=== PATIENT | female | born 1990 | race Caucasian/White ===

== ENCOUNTER 2017-03-15 09:10 | Emergency (ER) | payer OTHER ==
[2017-03-15 10:26] VITALS: BP 110/64
--- NOTE | 2017-03-15 10:51 | UC ---
Throat Pain/Nasal Eran HPI - HPI Summary HPI Summary: Pt presents with sore throat, headache, and feeling tired since last night. She tells me that she has a history of viral tonsillitis, but wants to be sure that this is all it is. She has not taken anything for this. Denies fever, chills, SOB, chest pain, abdominal pain, n/v/d/c. She is able to eat/drink/breathe without difficulties. - History of Current Complaint Chief Complaint: UCGeneralIllness Stated Complaint: SORE THROAT Time Seen by Provider: 03/15/17 10:50 Hx Obtained From: Patient Hx Last Menstrual Period: 03/07/16 Onset/Duration: Sudden Onset Severity: Moderate Pain Intensity: 8 Pain Scale Used: 0-10 Numeric - Allergies/Home Medications Allergies/Adverse Reactions: Allergies Allergy/AdvReac Type Severity Reaction Status Date / Time Bee Venom Allergy Unknown Verified 03/15/17 10:25 Reaction Details PMH/Surg Hx/FS Hx/Imm Hx - Surgical History Surgical History: None - Social History Occupation: Employed Full-time Lives: Alone Alcohol Use: Occasionally Substance Use Type: None Smoking Status (MU): Never Smoked Tobacco Have You Smoked in the Last Year: No - Immunization History Most Recent Influenza Vaccination: 01/11/15 Most Recent Tetanus Shot: 03/13/15 Most Recent Pneumonia Vaccination: none Review of Systems Constitutional: Fatigue, Other - Body Aches Skin: Negative Eyes: Negative ENT: Sore Throat Respiratory: Negative Cardiovascular: Negative Gastrointestinal: Negative All Other Systems Reviewed And Are Negative: Yes Physical Exam Triage Information Reviewed: Yes Appearance: Well-Appearing, No Pain Distress, Well-Nourished Vital Signs: Initial Vital Signs Temp 99.2 F 03/15/17 10:22 Pulse 87 03/15/17 10:22 Resp 18 03/15/17 10:22 BP 110/64 03/15/17 10:22 Pulse Ox 100 03/15/17 10:22 Vital Signs Reviewed: Yes Eyes: Positive: Conjunctiva Clear. Negative: Conjunctiva Inflamed, Discharge ENT: Positive: Hearing grossly normal, Pharyngeal erythema, TMs normal, Tonsillar swelling - 2+, Uvula midline. Negative: Nasal congestion, Nasal drainage, TM bulging, TM dull, TM red, Tonsillar exudate, Muffled voice, Hoarse voice, Sinus tenderness Neck: Positive: Supple, No Lymphadenopathy, Other: - TTP left submandibular Respiratory: Positive: Chest non-tender, Normal breath sounds Cardiovascular: Positive: RRR, No Murmur, Pulses Normal Neurological: Positive: Alert Psychological: Positive: Age Appropriate Behavior Skin: Negative: rashes Throat Pain/Nasal Course/Dx - Course Course Of Treatment: POC strep positive - Amoxicillin - Differential Dx/Diagnosis Provider Diagnoses: Strep Pharyngitis Discharge - Discharge Plan Condition: Stable Disposition: HOME Prescriptions: Amoxicillin PO (*) [Amoxicillin 500 MG CAP*] 500 mg PO Q12H #20 cap Patient Education Materials: Strep Throat (DC) Forms: *Work Release Referrals: Jeri Cabrera [Primary Care Provider] - Additional Instructions: If you develop a fever, shortness of breath, chest pain, new or worsening symptoms - please call your PCP or go to the ED.
== END 2017-03-15 11:00 | disposition home or self-care (01) ==
LOC: UCEAST 09:10
DX: J02.0 Streptococcal pharyngitis (principal)
CPT/HCPCS: 87651; 99212; G0463

== ENCOUNTER 2018-12-15 07:29 | Emergency (ER) | payer OTHER ==
[2018-12-15 07:42] VITALS: BP 121/81
--- NOTE | 2018-12-15 08:07 | UC ---
UC General HPI - HPI Summary HPI Summary: Patient is a 28-year-old female who presents to the urgent care with a chief complaint of being fatigued, weakness, is sleeping most of the day , feeling very tired all the time. She is been having this symptoms for the last couple weeks. She denies any headache, denies any chest pain, denies any shortness of breath or palpitations. She denies any abdominal pain nausea vomiting or diarrhea. She denies any UTI symptoms. She requested to blood work today. - History of Current Complaint Chief Complaint: UCGeneralIllness Stated Complaint: FATIGUE Time Seen by Provider: 12/15/18 07:55 Hx Last Menstrual Period: 11/23/18 Onset/Duration: Gradual Onset Timing: Constant Onset Severity: Mild Current Severity: Moderate Pain Intensity: 0 - Allergy/Home Medications Allergies/Adverse Reactions: Allergies Allergy/AdvReac Type Severity Reaction Status Date / Time bee venom protein (honey bee) Allergy unk Verified 12/15/18 07:36 Home Medications: Home Medications Multivit/Iron/Folic Acid/Hb179 [Womens Multivit Hi Potency Tab] 1 tab PO DAILY 12/15/18 [History Confirmed 12/15/18] PMH/Surg Hx/FS Hx/Imm Hx Previously Healthy: Yes - Surgical History Surgical History: None - Family History Known Family History: Positive: Non-Contributory - Social History Alcohol Use: Occasionally Substance Use Type: Marijuana Smoking Status (MU): Never Smoked Tobacco Have You Smoked in the Last Year: No - Immunization History Most Recent Influenza Vaccination: 01/11/15 Most Recent Tetanus Shot: 03/13/15 Most Recent Pneumonia Vaccination: none Review of Systems All Other Systems Reviewed And Are Negative: Yes Constitutional: Positive: Fatigue Skin: Positive: Negative Eyes: Positive: Negative ENT: Positive: Negative Respiratory: Positive: Negative Cardiovascular: Positive: Negative Gastrointestinal: Positive: Negative Genitourinary: Positive: Negative Motor: Positive: Negative Neurovascular: Positive: Negative Musculoskeletal: Positive: Negative Neurological: Positive: Negative Psychological: Positive: Negative Is Patient Immunocompromised?: No Physical Exam - Summary Physical Exam Summary: VITAL SIGNS: Reviewed. GENERAL: Patient is a well developed and nourished female who is lying comfortably in the stretcher. Patient is not in any acute respiratory distress. HEAD AND FACE: No signs of trauma. No ecchymosis, hematomas or skull depressions. No sinus tenderness. EYES: PERRLA, EOMI x 2, No injected conjunctiva, no nystagmus. EARS: Hearing grossly intact. Ear canals and tympanic membranes are within normal limits. MOUTH: Oropharynx within normal limits. NECK: Supple, trachea is midline, no adenopathy, no JVD, no carotid bruit, no c- spine tenderness, neck with full ROM. CHEST: Symmetric, no tenderness at palpation LUNGS: Clear to auscultation bilaterally. No wheezing or crackles. CVS: Regular rate and rhythm, S1 and S2 present, no murmurs or gallops appreciated. ABDOMEN: Soft, non-tender. No signs of distention. No rebound no guarding, and no masses palpated. Bowel sounds are normal. EXTREMITIES: FROM in all major joints, no edema, no cyanosis or clubbing. NEURO: Alert and oriented x 3. No acute neurological deficits. Speech is normal and follows commands. SKIN: Dry and warm Triage Information Reviewed: Yes Appearance: Well-Appearing Vital Signs: Initial Vital Signs Temp 98.3 F 12/15/18 07:38 Pulse 83 12/15/18 07:38 Resp 18 12/15/18 07:38 BP 121/81 12/15/18 07:38 Pulse Ox 100 12/15/18 07:38 Vital Signs Reviewed: Yes Course/Dx - Course Course Of Treatment: Patient was generalized complaints. Physical exam is within normal limits. Blood work would be sent to the lab. Urinalysis negative, test is negative. This point the patient will be discharged home requested to follow with the [facility]. - Diagnoses Provider Diagnosis: Fatigue, Weakness Discharge ED - Sign-Out/Discharge Documenting (check all that apply): Patient Departure All imaging exams completed and their final reports reviewed: No Studies - Discharge Plan Condition: Stable Disposition: HOME Patient Education Materials: Fatigue (ED), Weakness (ED) Referrals: No Primary Care Phys,NOPCP [Primary Care Provider] - [facility]FERR[facility] [Outside] Additional Instructions: Will follow-up with [facility]. Return to the urgent care or go to the emergency room and able to symptoms worsen or if she develops any other symptom. - Billing Disposition and Condition Condition: STABLE Disposition: Home
[2018-12-15 12:49] LABS: ABS Eosinophils 0.1 10^3/ul (0-0.6); ABS Lymphocytes 1.8 10^3/ul (1.0-4.8); ABS Monocytes 0.3 10^3/ul (0-0.8); ABS Neutrophils 2.1 10^3/ul (1.5-7.7); Eosinophil % 2.7 %; Hematocrit 39 % (35-47); Hemoglobin 13.5 g/dL (12.0-16.0); Lymphocyte % 41.9 %; Mean Corpuscular HGB Conc 35 g/dL (31-36); Mean Corpuscular Hemoglobin 31 pg (27-31); Mean Corpuscular Volume 89 fL (80-97); Mean Platelet Volume 8.2 fL (7.4-10.4); Platelet Count 291 10^3/uL (150-450); Red Blood Count 4.41 10^6 /uL (3.70-4.87); Red Cell Distribution Width 13 % (10-15); White Blood Count 4.4 10^3/uL (3.5-10.8)
[2018-12-15 13:14] LABS: TSH (Thyroid Stimulating Horm) 1.49 mcIU/mL (0.34-5.60)
[2018-12-15 15:43] LABS: Albumin 4.8 g/dL (3.2-5.2); Calcium 9.5 mg/dL (8.6-10.3); Potassium 3.9 mmol/L (3.5-5.0); Total Bilirubin 0.5 mg/dL (0.2-1.0)
[2018-12-15 15:49] LABS: Albumin/Globulin Ratio 1.9 (1-3); BUN/Creatinine Ratio 16.7 (8-20); EGFR African American 115.1 (>60); EGFR Non-African American 95.1 (>60); Globulin 2.5 g/dL (2-4); Total Protein 7.3 g/dL (6.4-8.9)
--- NOTE | 2018-12-16 08:00 | UC ---
- Progress Note Progress Note: PLEASE CALL PATIENT ADVISED THAT ALL LABS GROSSLY UNREMARKABLE. NOTHING TO EXPLAIN PATIENT'S FATIGUE. FOLLOW-UP PCP. Course/Dx - Diagnoses Provider Diagnoses: Fatigue, Weakness Discharge ED - Sign-Out/Discharge Documenting (check all that apply): Post-Discharge Follow Up All imaging exams completed and their final reports reviewed: No Studies - Discharge Plan Condition: Stable Disposition: HOME Patient Education Materials: Weakness (ED), Fatigue (ED) Referrals: [facility] [place] [facility]IAN REFERRAL [Outside] No Primary Care Phys,NOPCP [Primary Care Provider] - Additional Instructions: Will follow[facility]. Return to the urgent care or go to the emergency room and able to symptoms worsen or if she develops any other symptom. - Billing Disposition and Condition Condition: STABLE Disposition: Home
== END 2018-12-15 08:17 | disposition home or self-care (01) ==
LOC: UCEAST 07:29
DX: R53.83 Other fatigue (principal); R53.1 Weakness; Z91.030 Bee allergy status
CPT/HCPCS: 36415; 80053; 81003; 84443; 84702; 85025; 99211; G0463

== ENCOUNTER 2021-03-19 08:11 | Inpatient (IN) ==
[2021-03-19] MEDS ORDERED: Buffered Lidocaine 1% SYRIN 1 ml INTRADERM ONE (08:28)
[2021-03-19] MEDS ORDERED: Lactated Ringers 1000 ml BAG 1,000 ML IV ONE ×2 (08:28→19:37)
[2021-03-19] MEDS ORDERED: Lactated Ringers 1000 ml BAG 1,000 ML IV SCH ×2 (09:00→20:00)
[2021-03-19 12:55] LABS: Urine Benzodiazepine Screen None Detected (None Detect); Urine Cannabinoids Screen Presumptive Positive (None Detect); Urine Opiates Screen None Detected (None Detect)
[2021-03-19] MEDS ORDERED: Nalbuphine 10 MG/ML 1 ML VIAL IV PRN (15:13)
[2021-03-19] MEDS ORDERED: Promethazine INJ(RESTRICTED) 25 MG/ML 1 ml VIAL IV ONE (15:15)
[2021-03-19 17:53] LABS: ABS Eosinophils 0.1 10^3/ul (0-0.6); ABS Lymphocytes 1.5 10^3/ul (1.0-4.8); ABS Monocytes 0.5 10^3/ul (0-0.8); Eosinophil % 0.9 %; Hematocrit 33 % (35-47); Lymphocyte % 21.3 %; Mean Corpuscular HGB Conc 34 g/dL (31-36); Mean Corpuscular Hemoglobin 27 pg (27-31); Mean Corpuscular Volume 81 fL (80-97); Mean Platelet Volume 9.8 fL (7.4-10.4); Nucleated Red Blood Cells % 0.1; Platelet Count 192 10^3/uL (150-450); Red Blood Count 4.02 10^6 /uL (3.70-4.87); Red Cell Distribution Width 15 % (10-15); White Blood Count 7.1 10^3/uL (3.5-10.8)
[2021-03-19] MEDS ORDERED: Oxytocin in LR 20 UNITS/1,000 ML BAG IVPB SCH (18:00)
[2021-03-19] MEDS ORDERED: OBEPIDURAL 250 ML EPIDURAL ONE (18:52)
[2021-03-19] MEDS ORDERED: Phenylephrine 40 mcg/mL 10mL (400mcg) SYRINGE IV PUSH PRN ×2 (19:37)
[2021-03-19] MEDS ORDERED: Sodium Citrate/Citric Acid LIQ 15 ML UDC PO PRN (19:37)
[2021-03-19] MEDS ORDERED: Lidocaine 1% VIAL 10 MG/ML VIAL ONE (19:47)
[2021-03-19] MEDS ORDERED: OBEPIDURAL 250 ML EPIDURAL SCH (20:00)
[2021-03-20] MEDS ORDERED: Oxytocin 10 UNITS/ML 1 ML VIAL IM ONE (00:34)
[2021-03-20] MEDS ORDERED: Witch Hazel PAD JAR TOPICAL PRN (00:34)
[2021-03-20] MEDS ORDERED: Dibucaine 1% OINT 28.35 GM TUBE PR PRN (00:34)
[2021-03-20] MEDS ORDERED: Lactated Ringers 1000 ml BAG 1,000 ML IV SCH (01:00)
[2021-03-20 02:56] LABS: Urine Appearance Clear; Urine Bilirubin Negative (Negative); Urine Blood Negative (Negative); Urine Color Yellow; Urine Glucose Negative (Negative); Urine Ketones 2+ (Negative); Urine Nitrite Negative (Negative); Urine Protein Negative (Negative); Urine Specific Gravity 1.015 (1.002-1.030); Urine Urobilinogen Negative (Negative)
[2021-03-21 08:49] VITALS: BP 118/79
[2021-03-21 08:50] LABS: Eosinophil % 1.4 %; Hematocrit 31 % (35-47); Hemoglobin 10.5 g/dL (12.0-16.0); Lymphocyte % 22.9 %; Mean Corpuscular HGB Conc 33 g/dL (31-36); Mean Corpuscular Hemoglobin 28 pg (27-31); Mean Corpuscular Volume 83 fL (80-97); Mean Platelet Volume 9.9 fL (7.4-10.4); Platelet Count 181 10^3/uL (150-450); Red Blood Count 3.79 10^6 /uL (3.70-4.87); Red Cell Distribution Width 15 % (10-15); White Blood Count 11.4 10^3/uL (3.5-10.8)
[2021-03-21 09:06] LABS: ABS Basophils 0.1 10^3/ul (0-0.2); ABS Eosinophils 0.2 10^3/ul (0-0.6); ABS Lymphocytes 2.6 10^3/ul (1.0-4.8); ABS Monocytes 0.6 10^3/ul (0-0.8)
[2021-03-21 10:37] LABS: Nucleated Red Blood Cells % 0.2
== END 2021-03-21 13:20 | disposition home or self-care (01) | DRG 542 ==
LOC: MCHOBOUT 08:11 → MCHOB 08:36
PROVIDERS: ADMIT Midwife; ATTEND Midwife